=== PATIENT | female | born 1970 | race Caucasian/White ===

== ENCOUNTER 2017-08-02 15:06 | Inpatient (IN) ==
[2017-08-02] MEDS ORDERED: ONDANSETRON 4 MG/2 ML VIAL IV STA (16:17)
[2017-08-02] MEDS ORDERED: fentaNYL 100 MCG/2 ML VIAL IV STA (16:17)
[2017-08-02] MEDS ORDERED: ONDANSETRON 4 MG/2 ML VIAL ONE (16:48)
[2017-08-02] MEDS ORDERED: fentaNYL 100 MCG/2 ML VIAL ONE (16:48)
[2017-08-02 16:54] LABS: Basophils # 0.1 10*3/uL (0.0-0.2); Basophils % 0.7 % (0.0-0.8); Eosinophils # 0.2 10*3/uL (0.0-0.87); Eosinophils % 1.5 % (0.00-10.9); Hematocrit 40.8 VOL% (35.7-47.0); Hemoglobin 13.6 GM/DL (12.0-16.0); Immature Granulocytes % 0.3 %; Immature Granulocytes Absolute 0.03 #; Lymphocytes % 19.5 % (21.3-54.2); Mean Corpuscular HGB Conc 33.3 GM/DL (32-36); Mean Corpuscular Hemoglobin 29 PG (27-34); Mean Corpuscular Volume 88.3 FL (87-102); Mean Platelet Volume 10.6 FL (9.6-12.0); Monocytes # 0.7 10*3/uL (0.11-0.8); Monocytes % 6.9 % (1.7-12.7); Neutrophils # 7.3 10*3/uL (1.4-7.4); Neutrophils % 71.1 % (38.7-73.9); Platelet Count 268 T/CUMM (130-400); Red Blood Count 4.62 MC/CUMM (3.8-5.5); Red Cell Distribution Width 13.6 % (9.3-17.3); White Blood Count 10.3 T/CUMM (4-12)
[2017-08-02 17:07] LABS: INR 0.9; Partial Thromboplastin Time 27.7 SECS (0-40)
[2017-08-02 17:32] LABS: Albumin 3.6 G/DL (3.4-5.0); Bilirubin,Total 0.5 MG/DL (0.2-1.0); Calcium 9.1 MG/DL (8.5-10.1); Osmolality,Calculated 282.3 MOS/KG (273-304); Potassium 3.6 MMOL/L (3.5-5.1); Total Protein 7.5 G/DL (6.4-8.3)
[2017-08-02] MEDS ORDERED: MAGNESIUM HYDROXIDE SUSP 30 ML UDCUP PO PRN (17:50)
[2017-08-02] MEDS ORDERED: MORPHINE 2 MG/1 ML SYRINGE IV PRN (17:50)
[2017-08-02] MEDS: MORPHINE 2 MG/1 ML SYRINGE IV PRN (19:57)
[2017-08-02] MEDS: LACTATED RINGERS 1,000 ML IV SCH (19:58)
[2017-08-02] MEDS: DOCUSATE SODIUM 100 MG CAPSULE PO SCH (21:49)
[2017-08-03] MEDS: MORPHINE 2 MG/1 ML SYRINGE IV PRN ×3 (01:02→05:43)
[2017-08-03 02:10] LABS: Apearance,Urine CLEAR (Clear); Bilirubin,Urine Negative (Negative); Blood, Urine Negative (Negative); Glucose,Urine (UA) Negative (Negative); Ketones,Urine Negative (Negative); Mucus,Urine Occasional /LPF (Occasional); Nitrite,Urine Negative (Negative); Protein,Urine Negative; RBC,Urine 2 /HPF (0-4); Squamous Epithelial Cell,Urine Occasional /HPF (0-10); Urine Color Yellow (Yellow); Urine Specific Gravity 1.014 (1.001-1.035); Urine Urobilinogen < 2.0 EU/DL (0.2-1.0); WBC,Urine <1 /HPF (0-6)
[2017-08-03 05:09] LABS: Basophils # 0.1 10*3/uL (0.0-0.2); Basophils % 0.8 % (0.0-0.8); Eosinophils # 0.1 10*3/uL (0.0-0.87); Eosinophils % 0.9 % (0.00-10.9); Hematocrit 35.8 VOL% (35.7-47.0); Hemoglobin 11.8 GM/DL (12.0-16.0); Immature Granulocytes % 0.3 %; Immature Granulocytes Absolute 0.03 #; Lymphocytes # 1.5 10*3/uL (1.4-4.0); Lymphocytes % 17.2 % (21.3-54.2); Mean Corpuscular Hemoglobin 29 PG (27-34); Mean Corpuscular Volume 87.3 FL (87-102); Mean Platelet Volume 11.2 FL (9.6-12.0); Monocytes # 0.8 10*3/uL (0.11-0.8); Monocytes % 8.6 % (1.7-12.7); Neutrophils # 6.4 10*3/uL (1.4-7.4); Neutrophils % 72.2 % (38.7-73.9); Platelet Count 248 T/CUMM (130-400); Red Cell Distribution Width 13.6 % (9.3-17.3); White Blood Count 8.9 T/CUMM (4-12)
[2017-08-03] MEDS ORDERED: FAMOTIDINE 20 MG TABLET PO ONE (05:33)
[2017-08-03 05:40] LABS: Calcium 8.4 MG/DL (8.5-10.1); Osmolality,Calculated 280.3 MOS/KG (273-304)
[2017-08-03] MEDS: LACTATED RINGERS 1,000 ML IV SCH ×2 (05:46→15:48)
[2017-08-03] MEDS ORDERED: ceFAZolin 2,000 MG in PREMIX 1 EACH IV ONE (06:00)
[2017-08-03] MEDS ORDERED: LIDOCAINE 5% PATCH TRANSDERM PRN (06:16)
[2017-08-03] MEDS ORDERED: SUMAtriptan 25 MG TABLET PO PRN (06:16)
[2017-08-03] MEDS ORDERED: HYDROmorphone 2 MG/1 ML VIAL IM PRN (06:19)
[2017-08-03] MEDS ORDERED: ONDANSETRON 4 MG/2 ML VIAL ONE (07:00)
[2017-08-03] MEDS ORDERED: PROPOFOL 200 MG/20 ML VIAL IV ONE (07:00)
[2017-08-03] MEDS ORDERED: DEXAMETHASONE 10 MG/1 ML VIAL ONE (07:00)
[2017-08-03] MEDS ORDERED: LIDOCAINE 2% 5 ML VIAL ONE (07:00)
[2017-08-03] MEDS ORDERED: KETOROLAC 30 MG/1 ML VIAL ONE (07:00)
[2017-08-03] MEDS: LEVOTHYROXINE 150 MCG TABLET PO SCH (07:02)
[2017-08-03] MEDS ORDERED: CLINDAMYCIN INJ 50 ML IV ONE (07:30)
[2017-08-03] MEDS ORDERED: GENTAMICIN 80 MG/2 ML VIAL ONE (07:43)
[2017-08-03] MEDS ORDERED: CLINDAMYCIN INJ 900 MG in PREMIX 1 EACH IV ONE (07:48)
[2017-08-03] MEDS ORDERED: ROPIVACAINE 0.5% 30 ML VIAL ONE (10:21)
[2017-08-03] MEDS ORDERED: BACITRACIN OINT 0.9 GM PACK TOP ONE (10:21)
[2017-08-03] MEDS ORDERED: diphenhydrAMINE CAP 25 MG CAPSULE PO PRN (11:08)
[2017-08-03] MEDS ORDERED: HYDROmorphone 2 MG/1 ML VIAL IV PRN ×2 (11:08)
[2017-08-03] MEDS ORDERED: oxyCODONE IR 5 MG TABLET PO PRN ×2 (11:08)
[2017-08-03] MEDS ORDERED: SEVOFLURANE 1 UNIT/15 MINUTE INH ONE (11:58)
[2017-08-03] MEDS ORDERED: LACTATED RINGERS 1,000 ML IV ONE (11:59)
[2017-08-03] MEDS ORDERED: ACETAMINOPHEN 1,000 MG/100 ML VIAL IV ONE (11:59)
[2017-08-03] MEDS: buPROPion 100 MG TABLET PO SCH ×2 (14:41→20:27)
[2017-08-03] MEDS: DOCUSATE SODIUM 100 MG CAPSULE PO SCH ×2 (14:41→20:27)
[2017-08-03] MEDS: ACETAMINOPHEN 500 MG TABLET PO SCH ×2 (15:47→20:27)
[2017-08-03] MEDS: CLINDAMYCIN INJ 900 MG in PREMIX 1 EACH IV SCH (15:47)
[2017-08-03] MEDS: KETOROLAC 30 MG/1 ML VIAL IV SCH ×2 (15:47→19:36)
[2017-08-03] MEDS: PARoxetine 20 MG TABLET PO SCH (15:48)
[2017-08-04] MEDS: CLINDAMYCIN INJ 900 MG in PREMIX 1 EACH IV SCH (00:52)
[2017-08-04] MEDS: KETOROLAC 30 MG/1 ML VIAL IV SCH ×2 (01:20→06:35)
[2017-08-04] MEDS: ACETAMINOPHEN 500 MG TABLET PO SCH ×2 (01:28→09:04)
[2017-08-04 06:25] LABS: Basophils # 0.1 10*3/uL (0.0-0.2); Basophils % 0.9 % (0.0-0.8); Eosinophils # 0.2 10*3/uL (0.0-0.87); Hematocrit 30.7 VOL% (35.7-47.0); Hemoglobin 10.1 GM/DL (12.0-16.0); Immature Granulocytes % 0.2 %; Immature Granulocytes Absolute 0.02 #; Lymphocytes # 1.9 10*3/uL (1.4-4.0); Lymphocytes % 23.7 % (21.3-54.2); Mean Corpuscular HGB Conc 32.9 GM/DL (32-36); Mean Corpuscular Hemoglobin 29 PG (27-34); Mean Corpuscular Volume 88.7 FL (87-102); Neutrophils # 4.8 10*3/uL (1.4-7.4); Neutrophils % 60.2 % (38.7-73.9); Platelet Count 200 T/CUMM (130-400); Red Blood Count 3.46 MC/CUMM (3.8-5.5); Red Cell Distribution Width 13.7 % (9.3-17.3)
[2017-08-04] MEDS: LEVOTHYROXINE 150 MCG TABLET PO SCH (06:35)
[2017-08-04 07:08] LABS: Calcium 7.6 MG/DL (8.5-10.1); Osmolality,Calculated 281.1 MOS/KG (273-304); Potassium 3.5 MMOL/L (3.5-5.1)
[2017-08-04] MEDS: PARoxetine 20 MG TABLET PO SCH (09:04)
[2017-08-04] MEDS: buPROPion 100 MG TABLET PO SCH ×2 (09:04→21:00)
[2017-08-04] MEDS: DOCUSATE SODIUM 100 MG CAPSULE PO SCH ×2 (09:04→21:00)
[2017-08-04] MEDS: FONDAPARINUX 2.5 MG/0.5 ML SYRINGE SUBCUT SCH (09:05)
[2017-08-04] MEDS ORDERED: ACETAMINOPHEN 325 MG TABLET PO PRN (11:11)
[2017-08-04] MEDS: CELECOXIB 200 MG CAPSULE PO SCH (11:49)
[2017-08-05 03:30] LABS: Basophils # 0.1 10*3/uL (0.0-0.2); Basophils % 0.7 % (0.0-0.8); Eosinophils # 0.2 10*3/uL (0.0-0.87); Eosinophils % 2.1 % (0.00-10.9); Hematocrit 32.6 VOL% (35.7-47.0); Hemoglobin 10.7 GM/DL (12.0-16.0); Immature Granulocytes % 0.4 %; Immature Granulocytes Absolute 0.04 #; Lymphocytes # 3.3 10*3/uL (1.4-4.0); Lymphocytes % 29.6 % (21.3-54.2); Mean Corpuscular HGB Conc 32.8 GM/DL (32-36); Mean Corpuscular Hemoglobin 29 PG (27-34); Mean Corpuscular Volume 88.8 FL (87-102); Mean Platelet Volume 10.5 FL (9.6-12.0); Neutrophils # 6.5 10*3/uL (1.4-7.4); Neutrophils % 58.2 % (38.7-73.9); Platelet Count 261 T/CUMM (130-400); Red Blood Count 3.67 MC/CUMM (3.8-5.5); Red Cell Distribution Width 13.8 % (9.3-17.3); White Blood Count 11.1 T/CUMM (4-12)
[2017-08-05] MEDS: FONDAPARINUX 2.5 MG/0.5 ML SYRINGE SUBCUT SCH (07:08)
[2017-08-05] MEDS: LEVOTHYROXINE 150 MCG TABLET PO SCH (07:08)
[2017-08-05 08:19] VITALS: BP 128/75
[2017-08-05] MEDS: CELECOXIB 200 MG CAPSULE PO SCH (08:30)
[2017-08-05] MEDS: DOCUSATE SODIUM 100 MG CAPSULE PO SCH (08:30)
[2017-08-05] MEDS: PARoxetine 20 MG TABLET PO SCH (08:30)
[2017-08-05] MEDS: buPROPion 100 MG TABLET PO SCH (08:31)
== END 2017-08-05 11:45 | disposition home health service (06) | DRG 488 ==
LOC: EDUNIT# → N.ED 15:06 → N.EDINP 17:50 → N.3E 18:25
PROVIDERS: ADMIT Orthopaedic Surgery; ATTEND Orthopaedic Surgery